=== PATIENT | male | born 1975 | race Caucasian/White ===

== ENCOUNTER 2018-08-23 09:40 | Outpatient (CLI) | payer OTHER ==
[~2018-08-23 09:40] MED LIST: AVANDAMET 4 MG/1 TA1; GLIPIZIDE5 MG
== END 2018-08-23 09:52 | disposition home or self-care (01) ==
LOC: RAD 09:40
DX: M25.511 Pain in right shoulder (principal)

== ENCOUNTER 2018-12-13 07:11 | Outpatient (CLI) | payer OTHER | END 2018-12-13 07:18 | disposition home or self-care (01) | LOC: SONOGRAMA 07:11 → MAMO-SONO 08:15 | DX: M25.511 Pain in right shoulder (principal) ==

== ENCOUNTER → 2020-05-13 | Outpatient (CLI) | payer OTHER | END | disposition home or self-care (01) | LOC: SONOGRAMA 11:22 | PROVIDERS: ATTEND Orthopaedic Surgery | DX: M25.512 Pain in left shoulder (principal); M75.122 Complete rotator cuff tear or rupture of left shoulder, not specified as traumatic ==

== ENCOUNTER → 2024-12-05 | Emergency (ER) | payer OTHER ==
[~2024-12-05] VITALS: Ht 167.6 cm; Wt 90.7 kg
[~2024-12-05] MED LIST changes: +HUMALOG100 UNIT/2; +JARDIANCE10 MG; +LANTUS SOL100 UNIT/1
== END | disposition left against medical advice (07) ==
LOC: ER 03:09
DX: Z53.21 Procedure and treatment not carried out due to patient leaving prior to being seen by health care provider (principal)

== ENCOUNTER 2025-01-01 07:46 | Outpatient (CLI) | payer OTHER | END 2025-01-01 07:51 | disposition home or self-care (01) | LOC: NUCLEAR 07:46 | PROVIDERS: ATTEND General Practice | DX: I73.9 Peripheral vascular disease, unspecified (principal) ==

== ENCOUNTER 2025-01-02 07:30 | Outpatient (CLI) | payer OTHER | END 2025-01-02 07:31 | disposition home or self-care (01) | LOC: NUCLEAR 07:30 | PROVIDERS: ATTEND General Practice | DX: I73.9 Peripheral vascular disease, unspecified (principal) ==

== ENCOUNTER 2025-01-02 08:45 | Outpatient (CLI) | payer OTHER | END 2025-01-02 08:48 | disposition home or self-care (01) | LOC: RAD 08:45 | PROVIDERS: ATTEND General Practice | DX: G47.20 Circadian rhythm sleep disorder, unspecified type (principal); E78.5 Hyperlipidemia, unspecified; E03.8 Other specified hypothyroidism; Z12.11 Encounter for screening for malignant neoplasm of colon; E11.9 Type 2 diabetes mellitus without complications; N39.0 Urinary tract infection, site not specified; Z11.3 Encounter for screening for infections with a predominantly sexual mode of transmission; Z12.5 Encounter for screening for malignant neoplasm of prostate ==

== ENCOUNTER 2025-06-30 10:09 | Emergency (ER) | payer OTHER ==
[~2025-06-30] VITALS: Ht 172.7 cm; Wt 99.8 kg
[2025-06-30] MEDS ORDERED: SYNTHROID50 MCG PO (10:23)
[2025-06-30] MEDS ORDERED: TAMSULOSIN HCL 0.4 MG CAP PO ONE ×2 (11:12→11:15)
[2025-06-30] MEDS ORDERED: 0.9 % SODIUM CHLORIDE 1,000 ML IV SCH (11:15)
[2025-06-30 11:53] LABS: BASO % 0.4 % (0.1-1.2); EOS # 0.17 (0.04-0.54); EOS % 1.3 % (0.7-7.0); LYMPH # 1.90 (1.18-3.74); LYMPH % 14.1 % (19.3-53.1); MEAN PLATELET VOLUME 10.60 fl (9.4-12.4); MONO # 1.11 (0.24-0.82); MONO % 8.3 % (4.7-12.5); NEUT # 10.18 (1.56-6.13); NEUT % 75.6 % (34.0-71.1); RED CELL DISTRIBUTION WIDTH 12.9 % (11.6-14.4)
[2025-06-30 12:02] LABS: URINE APPEARANCE Clear; URINE BILIRRUBIN Negative (NEGATIVE); URINE BLOOD Moderate; URINE COLOR Yellow; URINE KETONE Trace (NEGATIVE); URINE LEUKOCYTE Negative; URINE NITRATE Negative; URINE PROTEIN Negative (NEGATIVE); URINE UROBILINOGEN 0.2 E.U./dl
[2025-06-30 12:07] LABS: URINE EPITHELIAL CELLS 1.5 uL (0.0-38.8); URINE RBC 63.6 uL (0.0-20.8); URINE WBC 2.9 uL (0.0-23.2)
[2025-06-30 12:15] LABS: URINE BACTERIA 3.5 uL (0.0-1933); URINE CAST 0.29 uL (0.0-1.40); URINE GLUCOSE >=1000 MG/DL (NEGATIVE)
[2025-06-30 13:20] LABS: BUN CREA RATIO 17.0 (7.0-25.0); CREATININE SERUM 1.36 mg/dL (0.70-1.30); GFR 55.24; OSMOLALITY SERUM 285.0 MOSM/KG (275-295)
[2025-06-30 13:24] LABS: GLUCOSE FASTING 202.0 mg/dL (65-100)
== END 2025-06-30 14:14 | disposition home or self-care (01) ==
LOC: ER 10:09
PROVIDERS: Emergency Medicine
DX: N13.39 Other hydronephrosis (principal); N20.2 Calculus of kidney with calculus of ureter; I10 Essential (primary) hypertension; E03.9 Hypothyroidism, unspecified; Z91.013 Allergy to seafood